=== PATIENT | male | born 1960 | race Caucasian/White ===

== ENCOUNTER → 2017-06-19 | Outpatient (CLI) | payer MEDICARE ==
[~2017-06-19] MED LIST: AEROECLIPSE II1 EACH MC; ALBIPROI; ALBIPROI INH; AMOX1XR PO; Albuterol2.5 MG/0.5 HHN; COMBIVENT RESPIM4 GM INH; Cipro500 MG PO; DIVA250EC PO; Duoneb 2.5-0.5 M3 ML INH; FLUSAL1005; FLUSAL2505 INH; HYDACE5 PO; HYDRA25 PO; IBUP600 PO; LEVFLO500 PO; Norco 5-325 Ta1 EACH PO; ONDA4ODT MM; OXYACE5T PO; Prednisone20 MG PO; Prinivil10 MG PO; QUET100 PO; Ventolin Soln3 ML INH; Ventolin/Prove6.7 GM INH; Zithromax250 MG PO
== END ==
LOC: LAB 14:34 → LAB SHORT 14:34 → LAB FUT 06-17 13:30
DX: J18.9 Pneumonia, unspecified organism (principal)
CPT/HCPCS: 87070; 87205

== ENCOUNTER 2020-01-28 01:39 | Emergency (ER) | payer MEDICARE ==
[~2020-01-28] VITALS: Ht 182.9 cm; Wt 93.0 kg
[2020-01-28 02:15] LABS: BASOPHILS ABSOLUTE AUTO 0.07 K/mm3 (0.00-0.23); BASOPHILS PERCENT AUTO 1 % (0-2); EOSINOPHILS ABSOLUTE AUTO 0.11 K/mm3 (0.00-0.68); EOSINOPHILS PERCENT AUTO 1 % (0-6); Hematocrit 45.4 % (37.0-53.0); Hemoglobin 15.1 g/dL (13.5-17.5); IMMATURE GRAN ABSOLUTE AUTO 0.03 K/mm3 (0.00-0.10); IMMATURE GRAN PERCENT AUTO 0 % (0-1); LYMPHOCYTES ABSOLUTE AUTO 1.99 K/mm3 (0.84-5.20); LYMPHOCYTES PERCENT AUTO 21 % (21-46); MONOCYTES ABSOLUTE AUTO 0.83 K/mm3 (0.16-1.47); MONOCYTES PERCENT AUTO 9 % (4-13); Mean Corpuscular HGB 31.5 pg (26.0-34.0); Mean Corpuscular HGB Conc 33.3 g/dL (31.5-36.5); Mean Corpuscular Volume 95 fL (80-100); Mean Platelet Volume 9.4 fL (9.1-12.4); NEUTROPHILS ABSOLUTE AUTO 6.56 K/mm3 (1.96-9.15); NEUTROPHILS PERCENT AUTO 68 % (41-73); Platelet Count 293 K/mm3 (150-400); RDW Coefficient Variation 13.6 % (11.7-14.2); RDW Standard Deviation 47.8 fL (35.1-46.3); Red Blood Cell Count 4.79 M/mm3 (4.30-5.90); White Blood Cell Count 9.59 K/mm3 (4.00-11.30)
[2020-01-28 02:33] LABS: Alanine Aminotransfer (ALT/SGP 77 U/L (12-78); Albumin, Blood 4.2 g/dL (3.4-5.0); Albumin/Globulin Ratio 1.2 (0.8-1.8); Alk Phos 100 U/L (50-136); Anion Gap 5 mmol/L (6-16); Aspartate Aminotrans (AST/SGOT 45 U/L (12-37); Bilirubin, Total 0.9 mg/dL (0.1-1.0); Blood Urea Nitrogen 35 mg/dL (8-24); CO2, Blood 28 mmol/L (21-32); Calcium, Blood 9.3 mg/dL (8.5-10.1); Chloride, Blood 106 mmol/L (98-108); Creatinine, Blood 0.92 mg/dL (0.60-1.20); Globulin, Blood 3.5 g/dL (2.2-4.0); Glomerular Filtration Rate >60 (60-); Glucose, Blood 114 mg/dL (70-99); Potassium, Blood 3.9 mmol/L (3.5-5.5); Sodium, Blood 139 mmol/L (136-145); Total Protein, Blood 7.7 g/dL (6.4-8.2)
[2020-01-28 04:58] LABS: Source, Urine Voided
[2020-01-28 05:00] LABS: Appearance, Urine Cloudy (Clear); Bilirubin, Urine Neg (Neg); Blood, Urine 5+ (Neg); Color, Urine Yellow (P-Yellow); Glucose Qualitative, Urine Neg (Neg); Ketones, Urine 3+ (Neg); Leukocyte Esterase, Urine 3+ (Neg); Nitrite, Urine Pos (Neg); Protein, Urine 3+ (Neg); Specific Gravity, Urine 1.015 (1.003-1.022); Urobilinogen, Urine 1+ (Normal)
[2020-01-28 05:09] LABS: U Amphetamine Screen DETECTED; U Barbituate Screen Not Detected; U Benzodiazapine Screen Not Detected; U Buprenorphine Screen Not Detected; U Cannabinoids Screen DETECTED; U Cocaine Screen Not Detected; U Methadone Screen Not Detected; U Methamphetamine Screen DETECTED; U Opiates Screen DETECTED; U Oxycodone Screen Not Detected; U Phencyclidine Screen Not Detected; U Propoxyphene Screen Not Detected
[2020-01-28 05:30] LABS: Bacteria Many /hpf; Squamous Epithelial Cells Not Seen /hpf (Few); Triple Phosphate Crystals Many /hpf
[2020-01-28] MEDS ORDERED: Flomax0.4 MG PO (05:42)
[2020-01-28] MEDS ORDERED: IBU600 MG PO (05:42)
[2020-01-28] MEDS ORDERED: Norco 5-325 Ta1 EACH PO (05:42)
[2020-01-28] MEDS ORDERED: CIPR500 PO (06:28)
== END 2020-01-28 06:21 | disposition home or self-care (01) ==
LOC: ER 01:39
PROVIDERS: Emergency Medicine
DX: N13.6 Pyonephrosis (principal); J44.9 Chronic obstructive pulmonary disease, unspecified; Z53.20 Procedure and treatment not carried out because of patient's decision for unspecified reasons; Z87.891 Personal history of nicotine dependence; Z79.899 Other long term (current) drug therapy
CPT/HCPCS: 74176; 80053; 81001; 83605; 85025; 87077; 87086; 87186; 96361; 96365; 96375; 99285-25; J0696; J1885; J2270; J7030

== ENCOUNTER 2024-04-16 08:46 | Inpatient (IN) | payer MEDICARE ==
[2024-04-16] VITALS (10 sets, daily range): BP systolic 120–145; BP diastolic 71–87
[~2024-04-16] VITALS: Ht 182.9 cm; Wt 74.9 kg
[~2024-04-16 08:46] MED LIST changes: +CIPR500 PO; +Flomax0.4 MG PO; +IBU600 MG PO
[2024-04-16 08:58] LABS: Base Excess Venous 6.4 mmol/L; Bicarbonate Venous 28.1 mmol/L (24.0-30.0); PCO2 Venous 53.5 mmHg (38-42); pH Blood Venous 7.38 (7.34-7.37)
[2024-04-16 09:04] LABS: BASOPHILS ABSOLUTE AUTO 0.04 K/mm3 (0.00-0.23); BASOPHILS PERCENT AUTO 1 % (0-2); EOSINOPHILS ABSOLUTE AUTO 0.11 K/mm3 (0.00-0.68); EOSINOPHILS PERCENT AUTO 1 % (0-6); Hematocrit 41.4 % (37.0-53.0); Hemoglobin 13.9 g/dL (13.5-17.5); IMMATURE GRAN ABSOLUTE AUTO 0.02 K/mm3 (0.00-0.10); IMMATURE GRAN PERCENT AUTO 0 % (0-1); LYMPHOCYTES ABSOLUTE AUTO 1.18 K/mm3 (0.84-5.20); LYMPHOCYTES PERCENT AUTO 14 % (21-46); MONOCYTES PERCENT AUTO 8 % (4-13); Mean Corpuscular HGB Conc 33.6 g/dL (31.5-36.5); Mean Corpuscular Volume 92 fL (80-100); Mean Platelet Volume 8.9 fL (9.1-12.4); NEUTROPHILS ABSOLUTE AUTO 6.47 K/mm3 (1.96-9.15); NEUTROPHILS PERCENT AUTO 76 % (41-73); Platelet Count 256 K/mm3 (150-400); RDW Coefficient Variation 13.7 % (11.7-14.2); RDW Standard Deviation 46.5 fL (35.1-46.3); Red Blood Cell Count 4.49 M/mm3 (4.30-5.90); White Blood Cell Count 8.52 K/mm3 (4.00-11.30)
[2024-04-16] MEDS ORDERED: Albuterol 2.5 MG/3 ML VIAL INH SCH (09:10)
[2024-04-16] MEDS ORDERED: Ipratropium Bromide INH 0.02% 0.5 mg/2.5ML Vial INH SCH (09:10)
[2024-04-16 09:58] LABS: Albumin, Blood 3.6 g/dL (3.4-5.0); Albumin/Globulin Ratio 0.9 (0.8-1.8); Bilirubin, Total 0.5 mg/dL (0.1-1.0); Bun/Creatinine Ratio 18.3 (12.0-20.0); Calcium, Blood 9.5 mg/dL (8.5-10.1); Creatinine, Blood 0.76 mg/dL (0.60-1.20); Potassium, Blood 4.2 mmol/L (3.5-5.5); Total Protein, Blood 7.6 g/dL (6.4-8.2)
[2024-04-16 10:20] LABS: Influenza A, PCR NEGATIVE (NEGATIVE); Influenza B, PCR NEGATIVE (NEGATIVE); Resp Syncytial Virus, PCR NEGATIVE (NEGATIVE); SARS-Cov-2 (COVID-19) PCR, MMC NEGATIVE (NEGATIVE)
[2024-04-16] MEDS ORDERED: Magnesium Hydroxide Conc 10 ML UDC PO PRN (11:25)
[2024-04-16] MEDS ORDERED: Bisacodyl 10 MG Supp PR PRN (11:25)
[2024-04-16] MEDS ORDERED: FLU VACC TS2024-25(6MOS UP)/PF 45 MCG/0.5 ML SYRINGE IM PRN (11:25)
[2024-04-16] MEDS ORDERED: Ondansetron 4 MG TAB PO PRN (11:30)
[2024-04-16] MEDS ORDERED: Ipratropium/Albuterol SulF 2.5-0.5MG/3 ML Amp INH SCH (11:30)
[2024-04-16] MEDS ORDERED: Mometasone/Formoterol MDI 200/5 mcg 13 GM INH SCH (11:35)
[2024-04-16] MEDS ORDERED: Benzonatate 100 MG Cap PO PRN (11:35)
[2024-04-16] MEDS ORDERED: LISI20 PO (14:10)
[2024-04-16] MEDS ORDERED: SPIRIVA RESPIMAT4 G3 INH (14:11)
[2024-04-16] MEDS ORDERED: ALBU2.5V5 INH (14:12)
[2024-04-16] MEDS ORDERED: ALBU8HFA2 INH (14:13)
[2024-04-16] MEDS ORDERED: MethylPREDNISolone Sod Succ 125 MG Vial IV SCH (16:00)
[2024-04-16] MEDS ORDERED: Famotidine 20 MG Tab PO SCH (16:30)
--- NOTE | 2024-04-16 18:18 | NUR ---
ADMISSION/SHIFT SUMMARY: PT IS A NEW ADMIT, ARRIVES F/ER APPROX 1320. PT IS A&Ox4, ANSWER QUESTIONS APPROPRIATELY AND IS ABLE TO MAKE NEEDS KNOWN. PT ARRIVES TO UNIT ON 6 L/MIN VIA NC, HAS BEEN TITRATED DOWN TO 3 L/MIN, HAS BEEN DECLINING TO USE BIPAP SINCE ARRIVAL TO HIS ROOM, REPORTS IMPROVED SOB. COUGH PRODUCTIVE OF THICK YELLOW SPUTUM NOTED. PT DENIES CHEST PAIN/PRESSURE, SR/ST ON MONITOR W/RATE 90s-100s. PT STATES LAST BM WAS YESTERDAY AND WAS "NORMAL" FOR HIM. PT ALSO REPORTS THAT HE HAS URINARY INCONTINENCE WHEN COUGHING SINCE HIS PROSTATE WAS REMOVED IN 2014, ATTENDS C/D/I W/ADDITIONAL SUPPLIES IN ROOM. PT HAS BEEN NAPPING INTERMITTENTLY SINCE ARRIVAL, STATES HE HAS RESTED MUCH THE LAST COUPLE DAYS. CALL LIGHT IN REACH, NO ACUTE DISTRESS AT THIS TIME.
[2024-04-16] MEDS ORDERED: Zolpidem Tartrate 5 MG Tab PO PRN (21:00)
[2024-04-16] MEDS ORDERED: Lactobacil 2-S.Thermo-Bifido 1 1 Cap PO SCH (21:00)
[2024-04-17] VITALS (8 sets, daily range): BP systolic 122–138; BP diastolic 74–91
[2024-04-17 04:24] LABS: BASOPHILS ABSOLUTE AUTO 0.01 K/mm3 (0.00-0.23); BASOPHILS PERCENT AUTO 0 % (0-2); EOSINOPHILS PERCENT AUTO 0 % (0-6); Hematocrit 43.1 % (37.0-53.0); Hemoglobin 14.3 g/dL (13.5-17.5); IMMATURE GRAN ABSOLUTE AUTO 0.04 K/mm3 (0.00-0.10); IMMATURE GRAN PERCENT AUTO 0 % (0-1); LYMPHOCYTES ABSOLUTE AUTO 0.48 K/mm3 (0.84-5.20); LYMPHOCYTES PERCENT AUTO 5 % (21-46); MONOCYTES PERCENT AUTO 1 % (4-13); Mean Corpuscular HGB 30.8 pg (26.0-34.0); Mean Corpuscular HGB Conc 33.2 g/dL (31.5-36.5); Mean Corpuscular Volume 93 fL (80-100); Mean Platelet Volume 9.2 fL (9.1-12.4); NEUTROPHILS ABSOLUTE AUTO 8.82 K/mm3 (1.96-9.15); NEUTROPHILS PERCENT AUTO 93 % (41-73); Platelet Count 285 K/mm3 (150-400); RDW Coefficient Variation 13.9 % (11.7-14.2); RDW Standard Deviation 47.6 fL (35.1-46.3); Red Blood Cell Count 4.64 M/mm3 (4.30-5.90); White Blood Cell Count 9.45 K/mm3 (4.00-11.30)
[2024-04-17 05:15] LABS: Albumin, Blood 3.4 g/dL (3.4-5.0); Albumin/Globulin Ratio 0.8 (0.8-1.8); Bilirubin, Total 0.4 mg/dL (0.1-1.0); Bun/Creatinine Ratio 23.1 (12.0-20.0); Calcium, Blood 9.6 mg/dL (8.5-10.1); Creatinine, Blood 0.78 mg/dL (0.60-1.20); Globulin, Blood 4.3 g/dL (2.2-4.0); Magnesium, Blood 2.1 mg/dL (1.6-2.4); Potassium, Blood 4.4 mmol/L (3.5-5.5); Total Protein, Blood 7.7 g/dL (6.4-8.2)
[2024-04-17] MEDS ORDERED: Acetaminophen 325 MG TABLET PO PRN (05:20)
--- NOTE | 2024-04-17 06:46 | NUR ---
END OF SHIFT SUMMARY NO ACUTE EVENTS OVERNIGHT. PT SLEPT T/O MOST OF SHIFT. PT REMAINS ALERT/ORIENTED AND COOPERATIVE W/ CARE. LUNG SOUNDS COARSE W/ EXP. WHEEZES- PT GIVEN PRN BREATHING TX W/ GOOD EFFECT. REMAINS ON 3L VIA NC, SATS >92%. NSR ON CONTINUOUS COIL TIER, RATE OF 90S. BP STABLE. PT AFEBRILE. USED URINAL INDEPENDENTLY IN ROOM. NO BM THIS SHIFT. CALL LIGHT W/IN REACH. PLAN OF CARE ONGOING.
[2024-04-17] MEDS ORDERED: Enoxaparin 40 MG/0.4 ML SYR SC SCH (09:00)
[2024-04-17] MEDS ORDERED: Loratadine 10 MG Tab PO SCH (09:00)
[2024-04-17] MEDS ORDERED: AmLODIPine Besylate 5 MG Tab PO SCH (09:00)
--- NOTE | 2024-04-17 09:46 | NUR ---
ASSUMPTION OF CARE: ASSUMED CARE OF PT AT 0700. PT ALERT AND ORIENTED. FOLLOWS DIRECTIONS AND MAKES NEEDS KNOWN. PT ON RA WITH SPO2 MID 90'S. DENIES SOB. EXPIRATORY WHEEZES CAN BE HEARD. RR 16-20. PT COUGHING UP MODERATE THICK YELLOW SECRETIONS. TESTER OPERATOR IN PLACE, SR WITH HR 90-100'S. SBP 110'S. DENIES CP/PRESSURE. PIV TO LAC, PATENT AND SALINE LOCKED. TOLERATING PO INTAKE WELL. ABLE TO AMBULATE TO THE BATHROOM IND. VOIDING YELLOW URINE. NO BM YET. BED LOW AND LOCKED, CALL LIGHT IN REACH.
[2024-04-17] MEDS ORDERED: AIRDUO RESPICL1 EAC4 INH (17:13)
[2024-04-17] MEDS ORDERED: DELTASONE20 MG PO (17:16)
--- NOTE | 2024-04-17 17:54 | NUR ---
DISCHARGE: PT DISCHARGED HOME AT 1754. TAKEN TO THE ER ENTRANCE BY WHEELCHAIR TO MEET HIS RIDE. ALL BELONGINGS SENT HOME WITH PT. PIV TO RAC REMOVED BEFORE DISCHARGE, PT ON RA BEFORE DISCHARGE. NO C/O SOB, CP OR PRESSURE. SPO2 88-92%. DISCHARGE PACKET SENT HOME WITH PT. PT HAD NO COMPLAINTS OR QUESTIONS.
== END 2024-04-17 18:39 | disposition home or self-care (01) | DRG 189 ==
LOC: ER 08:46 → ERHOLD 11:21 → ICUE 11:21
PROVIDERS: Hospitalist; Student in an Organized Health Care Education/Training Program; ADMIT Internal Medicine
PROC: 5A09357 Assistance with Respiratory Ventilation, Less than 24 Consecutive Hours, Continuous Positive Airway Pressure (ICD-10-PCS; principal; 2024-04-16)
DX: J96.21 Acute and chronic respiratory failure with hypoxia (principal); J44.1 Chronic obstructive pulmonary disease with (acute) exacerbation; G89.29 Other chronic pain; I49.3 Ventricular premature depolarization; Z96.641 Presence of right artificial hip joint; Z79.51 Long term (current) use of inhaled steroids; Z87.891 Personal history of nicotine dependence
CPT/HCPCS: 0241U; 36415; 71045; 80053; 82803; 83735; 83880; 84484; 85025; 93005; 93010; 94640; 94660; 94664; 94762; 99285-25; A9270; J1650; J2919